=== PATIENT | female | born 1955 | race African-American/Black ===

== ENCOUNTER 2017-08-06 01:56 | Emergency (ER) | payer MEDICARE, OTHER ==
[~2017-08-06] VITALS: Ht 167.6 cm; Wt 63.6 kg
[2017-08-06 02:03] VITALS: BP 0/0
== END 2017-08-06 04:26 | disposition expired ==
LOC: EMS 01:57
DX: I46.9 Cardiac arrest, cause unspecified (principal)
CPT/HCPCS: 31500; 92950; 99285